=== PATIENT | male | born 1955 | race Caucasian/White ===

== ENCOUNTER 2017-03-05 13:56 | Emergency (ER) | payer OTHER ==
[~2017-03-05] VITALS: Ht 180.3 cm; Wt 88.5 kg
[~2017-03-05 13:56] MED LIST: ASPI81TA31 PO; ATOR10TA PO; FLUT1DIS28 INH; GABA-534 PO; HYDR-3326 PO; HYDR12.517 PO; IBUP-1955 PO; METH4TAB21 PO; TIOT18CA3 IH
--- NOTE | 2017-03-05 14:46 | NUR ---
PATIENT WAS SEEN BY MD. XRAYS DONE. DC, RX AND FOLLOW UP INSTRUCTIONS GIVEN AND EXPLAINED TO PT WHO STATES HE UNDERSTANDS ALL INSTRUCTIONS.
== END 2017-03-05 14:47 | disposition home or self-care (01) ==
LOC: ER 13:56
DX: S90.121A Contusion of right lesser toe(s) without damage to nail, initial encounter (principal); M10.9 Gout, unspecified; E78.5 Hyperlipidemia, unspecified; G62.9 Polyneuropathy, unspecified; J44.9 Chronic obstructive pulmonary disease, unspecified; Z79.82 Long term (current) use of aspirin; F17.200 Nicotine dependence, unspecified, uncomplicated; F10.10 Alcohol abuse, uncomplicated; W19.XXXA Unspecified fall, initial encounter; Y93.89 Activity, other specified; Y92.89 Other specified places as the place of occurrence of the external cause; Y99.8 Other external cause status
CPT/HCPCS: 73660; A4663

== ENCOUNTER 2018-09-30 11:43 | Emergency (ER) | payer MEDICAID, OTHER ==
[~2018-09-30] VITALS: Ht 177.8 cm; Wt 83.9 kg
[2018-09-30] MEDS ORDERED: ALBU18HF2 INH (12:12)
[2018-09-30] MEDS ORDERED: DICL50TA7 PO (12:12)
[2018-09-30] MEDS ORDERED: ISOS30TA6 PO (12:12)
[2018-09-30] MEDS ORDERED: LISI-607 PO (12:12)
[2018-09-30] MEDS ORDERED: CARI350T PO (12:12)
--- NOTE | 2018-09-30 13:54 | NUR ---
Patient discharged to home in stable conditon. Written and verbal after care instructions given. Patient verbalizes understanding of instructions.
== END 2018-09-30 13:55 | disposition home or self-care (01) ==
LOC: ER 11:43
DX: S99.922A Unspecified injury of left foot, initial encounter (principal); S89.92XA Unspecified injury of left lower leg, initial encounter; E78.5 Hyperlipidemia, unspecified; J44.9 Chronic obstructive pulmonary disease, unspecified; F17.200 Nicotine dependence, unspecified, uncomplicated; Z79.82 Long term (current) use of aspirin; Z79.1 Long term (current) use of non-steroidal anti-inflammatories (NSAID); Z79.51 Long term (current) use of inhaled steroids; Z79.899 Other long term (current) drug therapy; W01.0XXA Fall on same level from slipping, tripping and stumbling without subsequent striking against object, initial encounter; Y93.89 Activity, other specified; Y92.89 Other specified places as the place of occurrence of the external cause; Y99.8 Other external cause status
CPT/HCPCS: 73630; A4663

== ENCOUNTER 2019-01-07 12:14 | Emergency (ER) | payer MEDICAID ==
[~2019-01-07] VITALS: Ht 177.8 cm; Wt 83.9 kg
[~2019-01-07 12:14] MED LIST changes: +ALBU18HF2 INH; +CARI350T PO; +DICL50TA7 PO; -FLUT1DIS28 INH; -HYDR12.517 PO; -IBUP-1955 PO; +ISOS30TA6 PO; +LISI-607 PO; -METH4TAB21 PO; -TIOT18CA3 IH
[2019-01-07] MEDS ORDERED: DICYCLOMINE HCL 20 MG/2 ML AMPUL IM SCH (12:45)
[2019-01-07 12:53] LABS: EOSINOPHILS % (AUTO) 0.6 % (0.0-7.0); HEMATOCRIT 39.3 % (36.7-47.1); HEMOGLOBIN 13.1 g/dL (12.5-16.3); LYMPHOCYTES # (AUTO) 1.2 K/uL (20.0-40.0); LYMPHOCYTES % (AUTO) 22.8 % (20.5-51.5); MEAN CORPUSCULAR HEMOGLOBIN 29.1 uug (23.8-33.4); MEAN CORPUSCULAR HGB CONC 33 g/dL (32.5-36.3); MEAN CORPUSCULAR VOLUME 87.4 fL (73.0-96.2); MONOCYTES # (AUTO) 0.4 K/uL (2.0-10.0); MONOCYTES % (AUTO) 7.3 % (0.0-11.0); NEUTROPHILS # (AUTO) 3.5 K/uL (1.8-8.9); NEUTROPHILS % (AUTO) 68.3 % (38.5-71.5); PLATELET COUNT (AUTO) 217 K/uL (152-348); RED BLOOD CELL COUNT(AUTO) 4.49 MIL/uL (4.06-5.63); WHITE BLOOD COUNT (AUTO) 5.1 K/uL (3.6-10.2)
[2019-01-07 12:57] LABS: CREATININE 0.9 mg/dL (0.6-1.3); POTASSIUM 4.1 mmol/L (3.5-5.1)
[2019-01-07 13:09] LABS: BILIRUBIN,DIRECT 0.1 mg/dL (0.0-0.2); BILIRUBIN,TOTAL 0.4 mg/dL (0.2-1.0); TOTAL PROTEIN, SERUM 7.1 g/dL (6.4-8.2)
--- NOTE | 2019-01-07 13:34 | NUR ---
Patient discharged to home in stable conditon. Written and verbal after care instructions given. Patient verbalizes understanding of instructions. Stressed follow up with pmd or return to ER for worsening s/s.
== END 2019-01-07 13:35 | disposition home or self-care (01) ==
LOC: ER 12:16
DX: K52.9 Noninfective gastroenteritis and colitis, unspecified (principal); E78.5 Hyperlipidemia, unspecified; J44.9 Chronic obstructive pulmonary disease, unspecified; F17.290 Nicotine dependence, other tobacco product, uncomplicated; Z79.82 Long term (current) use of aspirin; Z79.899 Other long term (current) drug therapy
CPT/HCPCS: 36415; 80048; 80076; 83690; 85025; 96372; 99283; 99406; J0500; A4663

== ENCOUNTER 2021-01-25 16:05 | Inpatient (IN) | payer MEDICARE, OTHER ==
[~2021-01-25] VITALS: Ht 177.8 cm; Wt 95.7 kg
[~2021-01-25 16:05] MED LIST changes: -ISOS30TA6 PO; +ISOS30TA86 PO; -LISI-607 PO; +LISI-782 PO
[2021-01-25] MEDS ORDERED: ASPIRIN 81 MG TAB.CHEW PO ONE (16:15)
[2021-01-25] MEDS ORDERED: NITROGLYCERIN 0.4 MG/TAB BOTTLE SL ONE ×2 (16:15→16:19)
--- NOTE | 2021-01-25 16:18 | NUR ---
Nitro 2nd dose SL given, pain remaines 03/28, BP 145/98, HR 111.
[2021-01-25] MEDS ORDERED: ASPIRIN 81 MG TAB.CHEW ONE (16:19)
--- NOTE | 2021-01-25 16:23 | NUR ---
3rd dose of Nitro 0.4 SL given pain 02/25, BP 146/85, HR 113.
[2021-01-25 16:29] LABS: BASOPHILS % (AUTO) 0.6 % (0.0-2.0); HEMATOCRIT 44.6 % (36.7-47.1); HEMOGLOBIN 14.9 g/dL (12.5-16.3); LYMPHOCYTES # (AUTO) 1.5 K/uL (20.0-40.0); LYMPHOCYTES % (AUTO) 18.6 % (20.5-51.5); MEAN CORPUSCULAR HEMOGLOBIN 31.9 uug (23.8-33.4); MEAN CORPUSCULAR HGB CONC 34 g/dL (32.5-36.3); MEAN CORPUSCULAR VOLUME 95.2 fL (73.0-96.2); MONOCYTES # (AUTO) 0.6 K/uL (2.0-10.0); MONOCYTES % (AUTO) 7.3 % (0.0-11.0); NEUTROPHILS # (AUTO) 5.9 K/uL (1.8-8.9); NEUTROPHILS % (AUTO) 73.5 % (38.5-71.5); PLATELET COUNT (AUTO) 244 K/uL (152-348); RED BLOOD CELL COUNT(AUTO) 4.68 MIL/uL (4.06-5.63); WHITE BLOOD COUNT (AUTO) 8.1 K/uL (3.6-10.2)
[2021-01-25 16:30] LABS: CREATININE 1.1 mg/dL (0.6-1.3); POTASSIUM 3.7 mmol/L (3.5-5.1)
[2021-01-25] MEDS ORDERED: MORPHINE SULFATE 4 MG/1 ML DISP.SYRIN IV ONE (16:30)
[2021-01-25] MEDS ORDERED: MORPHINE SULFATE 4 MG/1 ML DISP.SYRIN ONE (16:34)
--- NOTE | 2021-01-25 16:39 | NUR ---
COVID nasl swab collected and sent to LAB.
[2021-01-25 16:43] LABS: BILIRUBIN,DIRECT 0.3 mg/dL (0.0-0.2); BILIRUBIN,TOTAL 0.7 mg/dL (0.2-1.0); TOTAL PROTEIN, SERUM 7.9 g/dL (6.4-8.2)
[2021-01-25] MEDS ORDERED: ACETAMINOPHEN ES 500 MG TABLET ONE (16:56)
[2021-01-25] MEDS ORDERED: ACETAMINOPHEN ES 500 MG TABLET PO ONE (17:00)
--- NOTE | 2021-01-25 17:30 | NUR ---
Radu cheema in [facility] - 01/25/21 at 1754 by CAROLINA Patient is eating dinner with good appetite, NAD, calm, denies chest pains@this time.
--- NOTE | 2021-01-25 17:30 | NUR ---
Patient's spouse is eating dinner by patient's bedside. Patient said that he will eat when he gets admitted and he will eat in his private room upstairs.
[2021-01-25] MEDS: GABAPENTIN 300 MG CAPSULE PO SCH ×2 (18:00→18:35)
[2021-01-25] MEDS ORDERED: ALBUTEROL SULFATE 8 GM HFA.AER.AD INH PRN (18:00)
[2021-01-25] MEDS ORDERED: ALBUTEROL SULFATE 2.5 MG/3 ML NEBU NEB PRN (18:00)
--- NOTE | 2021-01-25 18:00 | NUR ---
pt refused to take medication because it wasn't the correct dose he usually takes at home, education provided on why he was taking it nd that irt is scheduled for BID, pt refused and wants his regular dose.
--- NOTE | 2021-01-25 18:29 | NUR ---
received report on pt from CLINT Vazquez in emergency department. pt is resting in bed, spouse at bedside. pt a/ox4 with c/o chest pain, on room air saturating at 97%. pt is ambulatory, on tele monitor, NSR, on cardiac diet, BRP, continent. pt has IV access on the right AC 18g verónica lock. no signs of distress, bed low and locked, call light within reach, safety precautions in place, c/o headache from nitro given in ER. pt given tylenol in ER to help headache go away. will continue to monitor pt and endorse to oncoming nurse.
--- NOTE | 2021-01-25 19:00 | NUR ---
pt insistent on blood work to check for Hepatitis. per pt he was diagnosed before with Hep C, so he went to a GI doctor to address it and the doctor then insisted that he did not have Hep C. He would like to get a test done to verify if he does or does not. Hospitalist made aware.
[2021-01-25] MEDS ORDERED: ACETAMINOPHEN 325 MG TABLET PO PRN (19:30)
[2021-01-25] MEDS ORDERED: MAGNESIUM HYDROXIDE 30 ML LIQUID UDC PO PRN (19:30)
[2021-01-25] MEDS ORDERED: ONDANSETRON 4 MG/2 ML VIAL IV PRN (19:30)
--- NOTE | 2021-01-25 20:12 | NUR ---
Received patient in bed awake alertx4.Denies chest pain at this time.SNR on tele.On Ra .Denies SOb.Iv on right AC 20g patent and intact.Patient ambulates to bathroom .Patient seen and examined by JEWEL Ramirez,medication were reconciled.Due meds given. Safety measures in place. Call light with in reach. at bed side .Will continue to monitor.
[2021-01-25 20:15] VITALS: BP 147/100
[2021-01-25] MEDS ORDERED: ATORVASTATIN 10 MG TABLET PO SCH (21:00)
[2021-01-25] MEDS ORDERED: TEMAZEPAM 7.5 MG CAPSULE PO PRN (21:15)
[2021-01-25] MEDS: ENOXAPARIN SODIUM 40 MG/0.4 ML DISP.SYRIN SQ SCH (21:27)
[2021-01-25] MEDS ORDERED: LORAZEPAM 2 MG/1 ML VIAL IV PRN (23:00)
[2021-01-25] MEDS: MORPHINE SULFATE 2 MG/1 ML DISP.SYRIN IV PRN (23:19)
[2021-01-25] MEDS: LOPERAMIDE HCL 2 MG CAPSULE PO PRN (23:28)
[2021-01-26] MEDS: MORPHINE SULFATE 2 MG/1 ML DISP.SYRIN IV PRN ×3 (03:22→15:02)
[2021-01-26 04:15] VITALS: BP 136/88
--- NOTE | 2021-01-26 04:24 | NUR ---
Patient c/o chest pain and gen. pain.Morphine IV given with good effect.Per patient pain subsided.Remain NSR on tele.Vital signs WNR.
[2021-01-26 05:47] LABS: BASOPHILS # (AUTO) 0.1 K/uL (0.0-8.0); BASOPHILS % (AUTO) 0.8 % (0.0-2.0); EOSINOPHILS % (AUTO) 0.4 % (0.0-7.0); HEMATOCRIT 40.6 % (36.7-47.1); HEMOGLOBIN 13.3 g/dL (12.5-16.3); LYMPHOCYTES # (AUTO) 1.9 K/uL (20.0-40.0); LYMPHOCYTES % (AUTO) 28.4 % (20.5-51.5); MEAN CORPUSCULAR HEMOGLOBIN 31.7 uug (23.8-33.4); MEAN CORPUSCULAR HGB CONC 33 g/dL (32.5-36.3); MEAN CORPUSCULAR VOLUME 96.4 fL (73.0-96.2); MONOCYTES # (AUTO) 0.6 K/uL (2.0-10.0); MONOCYTES % (AUTO) 8.4 % (0.0-11.0); NEUTROPHILS # (AUTO) 4.2 K/uL (1.8-8.9); PLATELET COUNT (AUTO) 206 K/uL (152-348); RED BLOOD CELL COUNT(AUTO) 4.21 MIL/uL (4.06-5.63); WHITE BLOOD COUNT (AUTO) 6.7 K/uL (3.6-10.2)
[2021-01-26 05:51] LABS: CREATININE 1.1 mg/dL (0.6-1.3); MAGNESIUM 2.1 mg/dL (1.8-2.4); POTASSIUM 3.8 mmol/L (3.5-5.1)
[2021-01-26 05:57] LABS: THYROID STIMULATING HORMONE 3.559 mIU/mL (0.358-3.740)
[2021-01-26] MEDS: PANTOPRAZOLE SODIUM 40 MG TABLET.DR PO SCH (06:11)
--- NOTE | 2021-01-26 06:47 | NUR ---
Patient awake. Denies chest pain at this time. No acute distress noted through out the shift.Call light with in reach.
--- NOTE | 2021-01-26 08:00 | NUR ---
received change of shift report, pt a/ox4, on tele monitor, NSR, ambulatory, on room air, no signs of distress, c/o pain, pain medication to be given. IV access on the right AC 18g saline lock. pt states he has had diarrhea for a while and has had 1 BM this morning. bed low and locked, safety precautions in place, will continue to monitor.
[2021-01-26] MEDS: ASPIRIN 81 MG TAB.CHEW PO SCH (08:21)
[2021-01-26] MEDS: GABAPENTIN 300 MG CAPSULE PO SCH ×3 (08:21→16:52)
[2021-01-26] MEDS: THIAMINE HCL 100 MG TABLET PO SCH (08:22)
[2021-01-26] MEDS: FOLIC ACID 1 MG TABLET PO SCH (08:22)
[2021-01-26] MEDS: NICOTINE 14 MG/24HR PATCH TD SCH ×2 (08:30→08:34)
[2021-01-26] MEDS: ISOSORBIDE MONONITRATE 30 MG TAB.SR.24H PO SCH (08:30)
--- NOTE | 2021-01-26 08:35 | NUR ---
pt states he quit smoking 2 years ago and does not need the nicotine patch.
[2021-01-26] MEDS ORDERED: LISINOPRIL 5 MG TABLET PO SCH (09:00)
[2021-01-26] MEDS: LOPERAMIDE HCL 2 MG CAPSULE PO PRN (09:09)
[2021-01-26] MEDS: HYDROCODONE/APAP 5-325MG TABLET PO PRN ×2 (13:17→22:20)
--- NOTE | 2021-01-26 13:20 | NUR ---
pt states he has pain in his fingers from arthritis, 9/10 pain, medication given as ordered.
--- NOTE | 2021-01-26 14:15 | NUR ---
RECEIVED PATIENT. A&O X3. DENIES PAIN OR DISCOMFORT. AT BEDSIDE. 2D ECHO IN PROGRESS.
[2021-01-26] MEDS ORDERED: ATOR80TA PO (14:46)
[2021-01-26] MEDS ORDERED: GABA600T12 PO (14:55)
[2021-01-26] MEDS ORDERED: HYDR-3980 PO (14:55)
[2021-01-26] MEDS ORDERED: LORA10TA7 PO (14:55)
[2021-01-26] MEDS ORDERED: FENO134C PO (14:55)
[2021-01-26] MEDS ORDERED: IPRA3AMP23 NEB (14:55)
[2021-01-26] MEDS ORDERED: MONT10TA33 PO (14:55)
[2021-01-26] MEDS ORDERED: FLUT1BLS12 PO (14:55)
[2021-01-26 16:00] VITALS: BP 112/74
[2021-01-26] MEDS ORDERED: MONTELUKAST SODIUM 10 MG TABLET PO SCH (18:00)
[2021-01-26 20:00] VITALS: BP 132/83
[2021-01-26] MEDS: ENOXAPARIN SODIUM 40 MG/0.4 ML DISP.SYRIN SQ SCH (20:50)
[2021-01-26] MEDS ORDERED: ATORVASTATIN 10 MG TABLET PO SCH (21:00)
[2021-01-26] MEDS ORDERED: ATORVASTATIN 40 MG TABLET PO SCH (21:00)
[2021-01-26] MEDS ORDERED: ATORVASTATIN 20 MG TABLET PO SCH (21:00)
--- NOTE | 2021-01-27 | NUR ---
PATIENT REASINGMENT RECEIVE PATIENT TO MY CARE AT THIS TIME HE IS AWAKE ALERT AND ORIENTED DENIES CHEST PAIN REMAIN ON TELE MONITORING AND HE IS SR WITH NO ECTOPY.VITALS CHECKED AND RECORDED AND ITS WITHIN CRISTOBAL LIMITS.CALL LIGHTS AND PERSONAL BELONGINGS ARE WITHIN EASY REACH WILL CONTINUE TO OBSERVE.
[2021-01-27 00:20] VITALS: BP 138/77
[2021-01-27 04:00] VITALS: BP 142/93
--- NOTE | 2021-01-27 06:45 | NUR ---
PATIENT IS AWAKE ALERT AND ORIENTED VERY ANGRY AND UPSET STATED FOR ME TO CALL THE TELEVISION NEWS REPORTER STATED THAT THE REGIONAL MARKETING DIRECTOR WAS HERE AT [address] TO SEE HIM AND HE WANTS TO REPORT THAT HE ALSO STATED THAT HE HAS NO CLOTHES TO WEAR TO GO HOME AND HAS NO KEYS SO I OPENED HIS CABINET AND HIS KEYS AND CLOTHES ARE IN THE DRAWER AND THEN HE SAID THAT HE HAS NO RIDE TO GET HOME I TRIED TO REASSURE HIM THAT WE WILL FIND A WAY TO GET HIM HOME SAFELY.THE WARP SCOURING VAT TENDER NOTIFIED AWAITING FOR KALPESH PAULINO TO SEE HIM AND MAY BE DISCHARGE HIM HOME TODAY.
[2021-01-27] MEDS: PANTOPRAZOLE SODIUM 40 MG TABLET.DR PO SCH (06:57)
[2021-01-27] MEDS: ISOSORBIDE MONONITRATE 30 MG TAB.SR.24H PO SCH (08:24)
[2021-01-27] MEDS: ASPIRIN 81 MG TAB.CHEW PO SCH (08:24)
[2021-01-27] MEDS: THIAMINE HCL 100 MG TABLET PO SCH (08:24)
[2021-01-27] MEDS: FOLIC ACID 1 MG TABLET PO SCH (08:24)
[2021-01-27] MEDS: GABAPENTIN 300 MG CAPSULE PO SCH (08:24)
[2021-01-27 08:25] VITALS: BP 175/93
[2021-01-27] MEDS: HYDROCODONE/APAP 5-325MG TABLET PO PRN (08:25)
--- NOTE | 2021-01-27 08:44 | NUR ---
SITTING ON THE CHAIR IN HIS ROOM TALKING TO HIS ON THE PHONE VERY UPSET YELLING CURSING SLAMMING THINGS UPSET THAT HE IS STILL HERE AND AGAIN THAT THE SUPERVISOR INDUSTRIAL ARTS EDUCATION CAME IN LATE AT FIRST REFUSED TO HAVE HIS BLOOD PRESSURE CHECKED BUT THEN FINALLY ALLOWED ME TO TAKE IT AND ITS 175/93 AND HEART RATE IS 107 DUE ANTIHYPERTENSIVE MEDICATIONS GIVEN AND PATIENT ENCOURAGED TO CALM DOWN.
[2021-01-27] MEDS ORDERED: LORATADINE 10 MG TABLET PO PRN (09:00)
[2021-01-27] MEDS ORDERED: LISINOPRIL 5 MG TABLET PO SCH (09:00)
[2021-01-27] MEDS: NICOTINE 14 MG/24HR PATCH TD SCH (09:00)
[2021-01-27] MEDS ORDERED: FENOFIBRATE MICRONIZED 67 MG PO SCH (09:00)
[2021-01-27] MEDS ORDERED: FENOFIBRATE NANOCRYSTALLIZED 48 MG TABLET PO SCH (09:00)
[2021-01-27] MEDS ORDERED: OMEP20CA15 PO (09:08)
[2021-01-27] MEDS ORDERED: LISI-782 PO (09:08)
--- NOTE | 2021-01-27 09:16 | NUR ---
CARE OF PATIENT ENDOESED TO ONCOMING NURSE PATIENT CONTINUES TO BE ANGRY BUT IS CALMING DOWN SOME AT THIS TIME.
--- NOTE | 2021-01-27 10:07 | NUR ---
anxious to get out of here, refused to take 2new meds just ordered for him , " just want to get the hell out of here" Declined vaccinations as offered, " got vaccinated for Covid already" paperwork down, patient left the floor, escorted by storage manager, on taxi voucher, alert, oriented, and blood pressure under control
== END 2021-01-27 10:05 | disposition home or self-care (01) | DRG 311 ==
LOC: ER 16:07 → TELE3 17:47
PROVIDERS: ADMIT Nurse Practitioner Family; ATTEND Nurse Practitioner Family
DX: I20.0 Unstable angina (principal); I10 Essential (primary) hypertension; F17.210 Nicotine dependence, cigarettes, uncomplicated; E78.5 Hyperlipidemia, unspecified; J44.9 Chronic obstructive pulmonary disease, unspecified; K52.9 Noninfective gastroenteritis and colitis, unspecified; Z20.822 Contact with and (suspected) exposure to COVID-19
CPT/HCPCS: 36415; 70030-TC; 71045; 83735; 84443; 85025; 86803; 93005; 93307; A4663; A9150; G0378; J1650; J2270

== ENCOUNTER 2021-05-24 19:22 | Inpatient (IN) | payer MEDICARE, OTHER ==
[~2021-05-24] VITALS: Ht 175.3 cm; Wt 98.4 kg
[~2021-05-24 19:22] MED LIST changes: -ASPI81TA31 PO; -ATOR10TA PO; +ATOR80TA PO; -CARI350T PO; +FENO134C PO; +FLUT1BLS12 PO; -GABA-534 PO; +GABA600T12 PO; -HYDR-3326 PO; +HYDR-3980 PO; +IPRA3AMP23 NEB; +LORA10TA7 PO; +MONT10TA33 PO; +OMEP20CA15 PO
[2021-05-24] MEDS ORDERED: MORPHINE SULFATE 4 MG/1 ML DISP.SYRIN IV ONE ×2 (20:30→21:30)
[2021-05-24 20:32] LABS: HEMATOCRIT 33.7 % (36.7-47.1); MEAN CORPUSCULAR HEMOGLOBIN 29.7 uug (23.8-33.4); MEAN CORPUSCULAR VOLUME 88.7 fL (73.0-96.2); PLATELET COUNT (AUTO) 309 K/uL (152-348)
[2021-05-24 20:35] LABS: CREATININE 1.3 mg/dL (0.6-1.3); POTASSIUM 4.2 mmol/L (3.5-5.1)
[2021-05-24 20:50] LABS: BILIRUBIN,DIRECT 0.1 mg/dL (0.0-0.2); BILIRUBIN,TOTAL 0.3 mg/dL (0.2-1.0); TOTAL PROTEIN, SERUM 7.7 g/dL (6.4-8.2)
[2021-05-24] MEDS ORDERED: Z GUARD REMEDY PASTE 57 GM TUBE TOP PRN (21:30)
[2021-05-24] MEDS ORDERED: HYDROCODONE/APAP 10-325 MG TABLET PO PRN (21:30)
[2021-05-24] MEDS ORDERED: MAGNESIUM HYDROXIDE 30 ML LIQUID UDC PO PRN (21:30)
[2021-05-24] MEDS ORDERED: ONDANSETRON 4 MG/2 ML VIAL IV PRN (21:30)
[2021-05-24] MEDS ORDERED: DICLOFENAC POTASSIUM PO SCH (21:30)
[2021-05-24] MEDS ORDERED: ACETAMINOPHEN 325 MG TABLET PO PRN (21:30)
[2021-05-24] MEDS ORDERED: ASPIRIN 81 MG TAB.CHEW PO ONE (21:45)
[2021-05-24] MEDS ORDERED: IOHEXOL 350 100 ML INFUS..BTL ONE (22:23)
[2021-05-24] MEDS ORDERED: SWABABLE VALVE TRANSFER SET EA MC ONE (22:23)
[2021-05-24] MEDS ORDERED: IV NORMAL SALINE 250 ML IV ONE (22:23)
[2021-05-24] MEDS ORDERED: AZITHROMYCIN 250 MG TABLET ONE (23:25)
[2021-05-24] MEDS ORDERED: CEFTRIAXONE /D5W 50ML IVPB **ER PYXIS IV ONE (23:26)
[2021-05-24] MEDS ORDERED: CEFTRIAXONE 1 G in IV DEXTROSE 5% 50 ML IV ONE (23:45)
[2021-05-24] MEDS ORDERED: AZITHROMYCIN 250 MG TABLET PO ONE (23:45)
[2021-05-24 23:55] VITALS: BP 143/72
[2021-05-25] MEDS ORDERED: ALBUTEROL SULFATE 2.5 MG/3 ML NEBU INH PRN (00:30)
[2021-05-25] MEDS: MORPHINE SULFATE 2 MG/1 ML DISP.SYRIN IV PRN ×5 (00:37→20:15)
[2021-05-25 04:00] VITALS: BP 154/82
[2021-05-25 06:55] LABS: HEMATOCRIT 29.5 % (36.7-47.1); MEAN CORPUSCULAR HEMOGLOBIN 30.1 uug (23.8-33.4); MEAN CORPUSCULAR VOLUME 89.7 fL (73.0-96.2); PLATELET COUNT (AUTO) 262 K/uL (152-348)
[2021-05-25] MEDS ORDERED: PANTOPRAZOLE SODIUM 40 MG TABLET.DR PO SCH (07:00)
[2021-05-25 07:09] LABS: MAGNESIUM 2.2 mg/dL (1.8-2.4); PHOSPHOROUS 2.8 mg/dL (2.5-4.9); POTASSIUM 3.6 mmol/L (3.5-5.1)
[2021-05-25] MEDS ORDERED: METOPROLOL TARTRATE 50 MG TABLET PO SCH ×2 (09:00)
[2021-05-25] MEDS ORDERED: FENOFIBRATE MICRONIZED 67 MG PO SCH (09:00)
[2021-05-25] MEDS: ASPIRIN 81 MG TAB.CHEW PO SCH (09:27)
[2021-05-25] MEDS: LORATADINE 10 MG TABLET PO SCH (09:27)
[2021-05-25] MEDS: MONTELUKAST SODIUM 10 MG TABLET PO SCH (09:27)
[2021-05-25] MEDS: ISOSORBIDE MONONITRATE 30 MG TAB.SR.24H PO SCH (09:37)
[2021-05-25] MEDS: LISINOPRIL 20 MG TABLET PO SCH (09:37)
[2021-05-25] MEDS: METOPROLOL TARTRATE 25 MG TABLET PO SCH ×2 (09:38→20:17)
[2021-05-25] MEDS: FLUTICASONE/VILANTEROL 1 EACH BLST.W.DEV INH SCH (10:04)
[2021-05-25 11:38] VITALS: BP 128/70
[2021-05-25 13:28] LABS: *AMPHETAMINE, URINE NEGATIVE (NEGATIVE); *CANNABINOID, URINE NEGATIVE (NEGATIVE); *COCCAINE, URINE NEGATIVE (NEGATIVE); *OPIATE, URINE POSITIVE (NEGATIVE); *PHENCYCLIDINE SCREEN,URINE NEGATIVE (NEGATIVE)
[2021-05-25 15:17] VITALS: BP 106/69
[2021-05-25] MEDS ORDERED: MISCELLANEOUS MED XX PRN ×2 (16:30→16:45)
[2021-05-25] MEDS ORDERED: OMEP40CA21 PO (16:31)
[2021-05-25] MEDS ORDERED: CARV25TA2 PO (16:36)
[2021-05-25] MEDS ORDERED: AMLO10TA59 PO (16:36)
[2021-05-25] MEDS ORDERED: FENO67CA5 PO (16:39)
[2021-05-25] MEDS: methylPREDNISolone SOD SUCC 40 MG/ML VIAL IV SCH ×2 (17:37→21:10)
[2021-05-25] MEDS: ENOXAPARIN SODIUM 40 MG/0.4 ML DISP.SYRIN SQ SCH ×2 (17:38→23:29)
[2021-05-25] MEDS: ATORVASTATIN 40 MG TABLET PO SCH (20:14)
[2021-05-25 20:55] VITALS: BP 129/85
[2021-05-25] MEDS: AZITHROMYCIN IV 500 MG in IV DEXTROSE 5% 250 ML IV SCH (21:10)
[2021-05-25] MEDS: CEFTRIAXONE 1 G in IV DEXTROSE 5% 50 ML IV SCH (23:29)
[2021-05-25] MEDS ORDERED: ACIDOPHILUS/BULGARICUS CHEW TAB GT SCH (23:45)
[2021-05-26 00:11] VITALS: BP 109/67
[2021-05-26] MEDS: MORPHINE SULFATE 2 MG/1 ML DISP.SYRIN IV PRN ×6 (00:17→22:28)
[2021-05-26 04:40] VITALS: BP 137/81
[2021-05-26] MEDS: methylPREDNISolone SOD SUCC 40 MG/ML VIAL IV SCH ×3 (06:24→21:45)
[2021-05-26] MEDS: ACIDOPHILUS/BULGARICUS CHEW TAB PO SCH ×3 (06:24→21:09)
[2021-05-26 06:37] LABS: HEMATOCRIT 31.8 % (36.7-47.1); MEAN CORPUSCULAR HEMOGLOBIN 29.7 uug (23.8-33.4); MEAN CORPUSCULAR VOLUME 89.2 fL (73.0-96.2); PLATELET COUNT (AUTO) 279 K/uL (152-348)
[2021-05-26 06:53] LABS: POTASSIUM 4.3 mmol/L (3.5-5.1)
[2021-05-26] MEDS: ENOXAPARIN SODIUM 40 MG/0.4 ML DISP.SYRIN SQ SCH ×2 (08:09→20:46)
[2021-05-26] MEDS: ASPIRIN 81 MG TAB.CHEW PO SCH (08:31)
[2021-05-26] MEDS: PANTOPRAZOLE SODIUM 40 MG VIAL IV SCH (08:31)
[2021-05-26] MEDS: ISOSORBIDE MONONITRATE 30 MG TAB.SR.24H PO SCH (08:31)
[2021-05-26] MEDS: METOPROLOL TARTRATE 25 MG TABLET PO SCH ×2 (08:32→20:45)
[2021-05-26] MEDS: AMLODIPINE 10 MG TABLET PO SCH (08:32)
[2021-05-26] MEDS: MONTELUKAST SODIUM 10 MG TABLET PO SCH (08:32)
[2021-05-26] MEDS: LORATADINE 10 MG TABLET PO SCH (08:32)
[2021-05-26] MEDS: FLUTICASONE/VILANTEROL 1 EACH BLST.W.DEV INH SCH (09:40)
[2021-05-26] MEDS: LISINOPRIL 20 MG TABLET PO SCH (09:40)
[2021-05-26 12:00] VITALS: BP 127/69
[2021-05-26 15:33] VITALS: BP 116/78
[2021-05-26 20:28] VITALS: BP 131/75
[2021-05-26] MEDS: ATORVASTATIN 40 MG TABLET PO SCH (20:45)
[2021-05-26] MEDS: AZITHROMYCIN IV 500 MG in IV DEXTROSE 5% 250 ML IV SCH (22:29)
[2021-05-26] MEDS: CEFTRIAXONE 1 G in IV DEXTROSE 5% 50 ML IV SCH (22:30)
[2021-05-27 00:18] VITALS: BP 131/75
[2021-05-27] MEDS: MORPHINE SULFATE 2 MG/1 ML DISP.SYRIN IV PRN ×5 (03:32→23:09)
[2021-05-27] MEDS: ACIDOPHILUS/BULGARICUS CHEW TAB PO SCH ×3 (06:09→21:09)
[2021-05-27] MEDS: methylPREDNISolone SOD SUCC 40 MG/ML VIAL IV SCH (06:39)
[2021-05-27 08:27] LABS: HEMATOCRIT 32.5 % (36.7-47.1); MEAN CORPUSCULAR HEMOGLOBIN 30.1 uug (23.8-33.4); MEAN CORPUSCULAR VOLUME 89.2 fL (73.0-96.2); PLATELET COUNT (AUTO) 335 K/uL (152-348)
[2021-05-27] MEDS: FENOFIBRATE NANOCRYSTALLIZED 145 MG TABLET PO SCH (08:34)
[2021-05-27] MEDS: PANTOPRAZOLE SODIUM 40 MG VIAL IV SCH (08:34)
[2021-05-27] MEDS: ASPIRIN 81 MG TAB.CHEW PO SCH (08:34)
[2021-05-27] MEDS: MONTELUKAST SODIUM 10 MG TABLET PO SCH (08:34)
[2021-05-27] MEDS: ISOSORBIDE MONONITRATE 30 MG TAB.SR.24H PO SCH (08:34)
[2021-05-27 08:35] LABS: POTASSIUM 4.5 mmol/L (3.5-5.1)
[2021-05-27] MEDS: AMLODIPINE 10 MG TABLET PO SCH (08:35)
[2021-05-27] MEDS: LORATADINE 10 MG TABLET PO SCH (08:35)
[2021-05-27] MEDS: METOPROLOL TARTRATE 25 MG TABLET PO SCH ×2 (08:37→20:36)
[2021-05-27] MEDS: FLUTICASONE/VILANTEROL 1 EACH BLST.W.DEV INH SCH (08:38)
[2021-05-27] MEDS: LISINOPRIL 20 MG TABLET PO SCH (08:38)
[2021-05-27] MEDS: ENOXAPARIN SODIUM 40 MG/0.4 ML DISP.SYRIN SQ SCH ×2 (08:39→20:37)
[2021-05-27 08:43] VITALS: BP 126/70
[2021-05-27] MEDS: methylPREDNISolone SOD SUCC 125 MG/2 ML VIAL IV SCH ×2 (13:14→21:55)
[2021-05-27 13:30] VITALS: BP 131/73
[2021-05-27 16:06] VITALS: BP 130/68
[2021-05-27] MEDS: ATORVASTATIN 40 MG TABLET PO SCH (20:36)
[2021-05-27 20:46] VITALS: BP 123/73
[2021-05-27] MEDS: AZITHROMYCIN IV 500 MG in IV DEXTROSE 5% 250 ML IV SCH (21:57)
[2021-05-27] MEDS: CEFTRIAXONE 1 G in IV DEXTROSE 5% 50 ML IV SCH (23:00)
[2021-05-28 00:06] VITALS: BP 131/76
[2021-05-28] MEDS: MORPHINE SULFATE 2 MG/1 ML DISP.SYRIN IV PRN ×6 (03:22→21:05)
[2021-05-28] MEDS: ACIDOPHILUS/BULGARICUS CHEW TAB PO SCH ×3 (06:07→21:05)
[2021-05-28 06:10] VITALS: BP 131/68
[2021-05-28] MEDS: methylPREDNISolone SOD SUCC 125 MG/2 ML VIAL IV SCH ×3 (06:18→21:04)
[2021-05-28 07:44] LABS: HEMATOCRIT 31.8 % (36.7-47.1); MEAN CORPUSCULAR HEMOGLOBIN 29.6 uug (23.8-33.4); MEAN CORPUSCULAR VOLUME 88.6 fL (73.0-96.2); PLATELET COUNT (AUTO) 321 K/uL (152-348)
[2021-05-28 07:49] LABS: CREATININE 1.1 mg/dL (0.6-1.3); POTASSIUM 4.4 mmol/L (3.5-5.1)
[2021-05-28] MEDS: ENOXAPARIN SODIUM 40 MG/0.4 ML DISP.SYRIN SQ SCH ×2 (08:23→20:18)
[2021-05-28] MEDS: LORATADINE 10 MG TABLET PO SCH (08:30)
[2021-05-28] MEDS: MONTELUKAST SODIUM 10 MG TABLET PO SCH (08:30)
[2021-05-28] MEDS: ISOSORBIDE MONONITRATE 30 MG TAB.SR.24H PO SCH (08:30)
[2021-05-28] MEDS: LISINOPRIL 20 MG TABLET PO SCH (08:30)
[2021-05-28] MEDS: AMLODIPINE 10 MG TABLET PO SCH (08:30)
[2021-05-28] MEDS: METOPROLOL TARTRATE 25 MG TABLET PO SCH ×2 (08:32→20:20)
[2021-05-28] MEDS: ASPIRIN 81 MG TAB.CHEW PO SCH (08:32)
[2021-05-28] MEDS: FENOFIBRATE NANOCRYSTALLIZED 145 MG TABLET PO SCH (08:35)
[2021-05-28] MEDS: PANTOPRAZOLE SODIUM 40 MG VIAL IV SCH (08:37)
[2021-05-28] MEDS: FLUTICASONE/VILANTEROL 1 EACH BLST.W.DEV INH SCH (08:42)
[2021-05-28 12:00] VITALS: BP 109/69
[2021-05-28 16:45] VITALS: BP 142/78
[2021-05-28] MEDS: ATORVASTATIN 40 MG TABLET PO SCH (20:19)
[2021-05-28 20:47] VITALS: BP 120/78
[2021-05-28] MEDS: AZITHROMYCIN IV 500 MG in IV DEXTROSE 5% 250 ML IV SCH (21:04)
[2021-05-28] MEDS: CEFTRIAXONE 1 G in IV DEXTROSE 5% 50 ML IV SCH (22:11)
[2021-05-29 00:19] VITALS: BP 129/72
[2021-05-29] MEDS: MORPHINE SULFATE 2 MG/1 ML DISP.SYRIN IV PRN ×5 (01:24→21:05)
[2021-05-29 04:56] VITALS: BP 131/75
[2021-05-29] MEDS: methylPREDNISolone SOD SUCC 125 MG/2 ML VIAL IV SCH ×3 (05:55→22:13)
[2021-05-29] MEDS: ACIDOPHILUS/BULGARICUS CHEW TAB PO SCH ×3 (05:56→22:13)
[2021-05-29] MEDS: PANTOPRAZOLE SODIUM 40 MG TABLET.DR PO SCH (06:04)
[2021-05-29 06:14] LABS: MEAN CORPUSCULAR HEMOGLOBIN 29.7 uug (23.8-33.4); PLATELET COUNT (AUTO) 334 K/uL (152-348)
[2021-05-29 06:21] LABS: CREATININE 1.3 mg/dL (0.6-1.3); POTASSIUM 4.8 mmol/L (3.5-5.1)
[2021-05-29] MEDS: ISOSORBIDE MONONITRATE 30 MG TAB.SR.24H PO SCH (08:07)
[2021-05-29] MEDS: METOPROLOL TARTRATE 25 MG TABLET PO SCH ×2 (08:07→20:33)
[2021-05-29] MEDS: ENOXAPARIN SODIUM 40 MG/0.4 ML DISP.SYRIN SQ SCH ×2 (08:08→20:41)
[2021-05-29] MEDS: FLUTICASONE/VILANTEROL 1 EACH BLST.W.DEV INH SCH (08:09)
[2021-05-29 12:00] VITALS: BP 132/87
[2021-05-29] MEDS: FENOFIBRATE NANOCRYSTALLIZED 145 MG TABLET PO SCH (12:23)
[2021-05-29] MEDS: MONTELUKAST SODIUM 10 MG TABLET PO SCH (12:23)
[2021-05-29] MEDS: ASPIRIN 81 MG TAB.CHEW PO SCH (12:23)
[2021-05-29] MEDS: LORATADINE 10 MG TABLET PO SCH (12:23)
[2021-05-29] MEDS: LISINOPRIL 20 MG TABLET PO SCH (12:24)
[2021-05-29] MEDS: AMLODIPINE 10 MG TABLET PO SCH (12:24)
[2021-05-29 15:47] VITALS: BP 102/63
[2021-05-29 20:00] VITALS: BP 116/75
[2021-05-29] MEDS: ATORVASTATIN 40 MG TABLET PO SCH (20:31)
[2021-05-29] MEDS: CEFTRIAXONE 1 G in IV DEXTROSE 5% 50 ML IV SCH (22:14)
[2021-05-30 04:00] VITALS: BP 118/70
[2021-05-30] MEDS: PANTOPRAZOLE SODIUM 40 MG TABLET.DR PO SCH (06:02)
[2021-05-30] MEDS: ACIDOPHILUS/BULGARICUS CHEW TAB PO SCH ×2 (06:02→15:10)
[2021-05-30] MEDS: methylPREDNISolone SOD SUCC 125 MG/2 ML VIAL IV SCH ×2 (06:02→15:05)
[2021-05-30] MEDS: MORPHINE SULFATE 2 MG/1 ML DISP.SYRIN IV PRN ×4 (06:03→19:37)
[2021-05-30 06:28] LABS: CREATININE 1.3 mg/dL (0.6-1.3); POTASSIUM 4.8 mmol/L (3.5-5.1)
[2021-05-30] MEDS: FLUTICASONE/VILANTEROL 1 EACH BLST.W.DEV INH SCH (08:36)
[2021-05-30] MEDS: METOPROLOL TARTRATE 25 MG TABLET PO SCH (08:39)
[2021-05-30] MEDS: LISINOPRIL 20 MG TABLET PO SCH (08:39)
[2021-05-30] MEDS: AMLODIPINE 10 MG TABLET PO SCH (08:39)
[2021-05-30] MEDS: MONTELUKAST SODIUM 10 MG TABLET PO SCH (08:40)
[2021-05-30] MEDS: ISOSORBIDE MONONITRATE 30 MG TAB.SR.24H PO SCH (08:40)
[2021-05-30] MEDS: LORATADINE 10 MG TABLET PO SCH (08:41)
[2021-05-30] MEDS: ASPIRIN 81 MG TAB.CHEW PO SCH (08:42)
[2021-05-30] MEDS: FENOFIBRATE NANOCRYSTALLIZED 145 MG TABLET PO SCH (08:42)
[2021-05-30] MEDS: ENOXAPARIN SODIUM 40 MG/0.4 ML DISP.SYRIN SQ SCH (08:47)
[2021-05-30 11:02] VITALS: BP 128/81
[2021-05-30] MEDS ORDERED: ACID1TAB4 PO (11:07)
[2021-05-30] MEDS ORDERED: ASPI81TA31 PO (11:07)
[2021-05-30] MEDS ORDERED: methylPREDNISolone SOD SUCC IV (11:07)
[2021-05-30] MEDS ORDERED: Morphine Sulfate Inj IV (11:07)
[2021-05-30] MEDS ORDERED: CEFT1FRO2 IV (11:07)
[2021-05-30] MEDS ORDERED: ENOX40DI SQ (11:07)
[2021-05-30] MEDS ORDERED: PANT40TA49 PO (11:07)
[2021-05-30] MEDS ORDERED: METO25TA6 PO (11:07)
[2021-05-30 11:16] VITALS: BP 128/81
[2021-05-30 15:02] VITALS: BP 125/68
== END 2021-05-30 20:45 | disposition short-term general hospital (02) | DRG 178 ==
LOC: ER 19:22 → TELE3 23:39 → MEDSURG3 05-29 10:37 → TELE3 05-30 09:02
PROVIDERS: ADMIT Nurse Practitioner Acute Care; ATTEND Hospitalist
DX: J15.6 Pneumonia due to other Gram-negative bacteria (principal); J44.0 Chronic obstructive pulmonary disease with (acute) lower respiratory infection; J44.1 Chronic obstructive pulmonary disease with (acute) exacerbation; Z20.822 Contact with and (suspected) exposure to COVID-19; G89.29 Other chronic pain; F17.210 Nicotine dependence, cigarettes, uncomplicated; E78.5 Hyperlipidemia, unspecified; I10 Essential (primary) hypertension; B19.20 Unspecified viral hepatitis C without hepatic coma; M19.90 Unspecified osteoarthritis, unspecified site; I25.10 Atherosclerotic heart disease of native coronary artery without angina pectoris; R79.89 Other specified abnormal findings of blood chemistry
CPT/HCPCS: 36415; 70030-TC; 71045; 71275; 83690; 83735; 84100; 85025; 85730; 93005; A4663; C9113; G0378; J0456; J0696; J1650; J2270; J2920; J2930; J7040; J7050; J7060; Q0144; Q9967; U0003

== ENCOUNTER 2022-05-27 08:47 | Emergency (ER) | payer BC, OTHER ==
[~2022-05-27] VITALS: Ht 172.7 cm; Wt 86.2 kg
[~2022-05-27 08:47] MED LIST changes: +ACID1TAB4 PO; +AMLO10TA59 PO; +ASPI81TA31 PO; +CEFT1FRO2 IV; -DICL50TA7 PO; +ENOX40DI SQ; -FENO134C PO; +FENO67CA5 PO; -HYDR-3980 PO; -IPRA3AMP23 NEB; +METO25TA6 PO; +Morphine Sulfate Inj IV; -OMEP20CA15 PO; +PANT40TA49 PO; +methylPREDNISolone SOD SUCC IV
[2022-05-27] MEDS ORDERED: KETOROLAC TROMETHAMINE 15 MG INJ IM ONE (09:00)
[2022-05-27] MEDS ORDERED: IV NORMAL SALINE 500 ML BAG IV ONE ×2 (09:00→09:30)
--- NOTE | 2022-05-27 09:10 | NUR ---
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 Multiple medical history as noted in triage. Patient states that his chest pain is accompanied by SOB. Pt also has secondary complaints of hip pain r/t fall from weeks ago. Dr. Paulson, lead investigator, Primary RN and Student RN at bedside. EKG done right away, and blood samples collected. 2 IV lines maintained, L AC started in the field, R AC started by Primary RN as recorded. O2 2LPM started for SOB, pt saturating at 99%. Pt with hx of emphysema, will DC O2 when pt's SOB is relieved. No signs of acute distress at this time.
[2022-05-27] MEDS ORDERED: KETOROLAC TROMETHAMINE 15 MG INJ ONE (09:12)
--- NOTE | 2022-05-27 09:20 | NUR ---
XRAY at bedside.
[2022-05-27 09:26] LABS: CREATININE 1.3 mg/dL (0.6-1.3); POTASSIUM 3.7 mmol/L (3.5-5.1)
[2022-05-27 09:39] LABS: BILIRUBIN,TOTAL 0.5 mg/dL (0.2-1.0); TOTAL PROTEIN, SERUM 7.1 g/dL (6.4-8.2)
[2022-05-27 09:46] LABS: HEMATOCRIT 37.4 % (36.7-47.1); MEAN CORPUSCULAR HEMOGLOBIN 29.3 uug (23.8-33.4); MEAN CORPUSCULAR VOLUME 86.6 fL (73.0-96.2); PLATELET COUNT (AUTO) 273 K/uL (152-348)
[2022-05-27] MEDS ORDERED: ACETAMINOPHEN 325 MG TABLET PO ONE (10:00)
--- NOTE | 2022-05-27 10:24 | NUR ---
Pt still c/o chest pain, notified with new orders. Pt refused new order and started yelling at the nurse and cursing. XR tech at bedside, pt refused Chest XR 2 view. Security personell contacted and at bedside, pt continued to yell as RN was explaining plan to patient, s/w patient, pt calmed down and second set of troponin obtained. Pt also allowed EKG to be retaken. MD and RN answered all of pt's questions regarding today's result.
[2022-05-27] MEDS ORDERED: LIDOCAINE 5% PATCH TD ONE (11:00)
[2022-05-27] MEDS ORDERED: AZIT250T13 PO (11:08)
--- NOTE | 2022-05-27 11:10 | NUR ---
MD has cleared pt for discharge. MD thoroughly explained patient's lab results, CXR (he still refused the 2nd chest Xray), MD also ordered a lidocaine patch to help with pain. Pt continued to refuse, stating "give me the regular ones". MD then continued to explain the discharge instructions, pt asked questions and MD answered. RN removed IVF removed.
--- NOTE | 2022-05-27 11:30 | NUR ---
floor space allocator assisted in discharging patient. Pt signed DC paperworks with RN and he was escorted out by floor space allocator and hospital security.
[2022-05-27] MEDS ORDERED: HALOPERIDOL LACTATE 5 MG/1 ML VIAL IM ONE (11:45)
[2022-05-27] MEDS ORDERED: LORAZEPAM 2 MG/1 ML VIAL IM ONE (11:45)
[2022-05-27 12:28] VITALS: BP 125/70
== END 2022-05-27 11:35 | disposition home or self-care (01) ==
LOC: ER 08:48
DX: R07.9 Chest pain, unspecified (principal); J44.0 Chronic obstructive pulmonary disease with (acute) lower respiratory infection; J18.9 Pneumonia, unspecified organism; F17.210 Nicotine dependence, cigarettes, uncomplicated; E78.5 Hyperlipidemia, unspecified; I25.2 Old myocardial infarction
CPT/HCPCS: 99285; 71045 ×2; 80053; 83880; 83690; 85025; 84484 ×2; 36415; 93005 ×2; 73521; 96372; J1885; A4663